=== PATIENT | male | born 1945 | race Caucasian/White ===

== ENCOUNTER 2019-08-03 12:05 | Emergency (ER) | payer OTHER, MEDICARE ==
[~2019-08-03] VITALS: Ht 180.3 cm; Wt 98.0 kg
[2019-08-03 12:09] VITALS: BP 153/87
[2019-08-03] MEDS ORDERED: LIDOCAINE-MPF 1%, 5ML ONE (12:26)
[2019-08-03] MEDS ORDERED: DIPH,PERTUSS(ACELL),TET VAC/PF 0.5 ML IM-VACC ONE ×2 (12:55→13:00)
[2019-08-03] MEDS ORDERED: LIDOCAINE-MPF 1%, 5ML INFIL ONE (13:00)
[2019-08-03] MEDS ORDERED: NEOSPORIN OINT. PKT 1 PACKET ONE (13:13)
== END 2019-08-03 13:21 ==
LOC: ED 13:15
DX: S61.012A Laceration without foreign body of left thumb without damage to nail, initial encounter (principal); X58.XXXA Exposure to other specified factors, initial encounter; Y93.89 Activity, other specified; Y92.098 Other place in other non-institutional residence as the place of occurrence of the external cause; Y99.8 Other external cause status
CPT/HCPCS: 12041; 90471; 90715; 99284